=== PATIENT | female | born 1955 | race Caucasian/White ===

== ENCOUNTER 2022-02-28 06:00 | Outpatient (RCR) | payer MEDICARE, MEDICAID, SELFPAY | END 2022-03-03 23:59 | disposition home or self-care (01) | LOC: MPT 06:00 | PROVIDERS: Visit Provider Physician Assistant | DX: M25.511 Pain in right shoulder (principal) | CPT/HCPCS: 97161 ==

== ENCOUNTER 2022-03-04 06:00 | Outpatient (RCR) | payer MEDICARE, MEDICAID, SELFPAY | END 2022-04-03 23:59 | disposition home or self-care (01) | LOC: MPT 06:00 | PROVIDERS: Visit Provider Physician Assistant | DX: M25.511 Pain in right shoulder (principal) | CPT/HCPCS: 97110; 97140; 97530; G0283 ==

== ENCOUNTER 2022-04-04 06:00 | Outpatient (RCR) | payer MEDICARE, MEDICAID, SELFPAY | END 2022-05-01 23:59 | disposition home or self-care (01) | LOC: MPT 06:00 | PROVIDERS: Visit Provider Physician Assistant | DX: M25.511 Pain in right shoulder (principal) | CPT/HCPCS: 97110; G0283 ==

== ENCOUNTER 2023-08-08 16:48 | Emergency (ER) | payer MEDICARE, MEDICAID, SELFPAY ==
[2023-08-08 17:13] VITALS: BP 191/91; PULSE 78; RESP 16; TEMP 36.7; O2SAT 96
[2023-08-08 18:02] LABS: Basophils % 0.2 %; Eosinophils % 0.1 %; Hematocrit 45.2 % (36-47); Lymphocytes # 1.6 10^3/uL (0.8-4.8); Lymphocytes % 10.8 %; Mean Corpuscular HGB Conc 33.2 g/dL (30-55); Mean Corpuscular Hemoglobin 30.5 pg (27-33); Mean Corpuscular Volume 91.9 fl (85-98); Mean Platelet Volume 11.4 fL (7.4-10.4); Monocytes # 0.7 10^3/uL (0.2-0.9); Monocytes % 4.7 %; Neutrophils # 12.17 10^3/uL (1.8-7.7); Neutrophils % 83.5 %; Nucleated Red Blood Cells % 0 %; Platelet Count 255 10^3/cmm (157-399); Red Blood Count 4.92 10^6/uL (3.85-5.65); Red Cell Distribution Width 12.7 % (12.1-15.1); White Blood Count 14.57 10^3/uL (3.29-11.43)
[2023-08-08 18:21] LABS: Alanine Aminotransferase 48 U/L (0-33); Albumin Level 4.5 g/dL (3.5-5.2); Alkaline Phosphatase 114 U/L (35-105); Anion Gap 15.2 (5-19); Aspartate Amino Transferase 20 U/L (0-32); Blood Urea Nitrogen 18 mg/dL (8-23); Calcium 9.8 mg/dL (8.5-10.5); Carbon Dioxide 23 mmol/L (22-29); Chloride 108 mmol/L (98-107); Creatinine Clr Calc Pharmacy 57.4143; Globulin 2.6 g/dL (1.3-4.6); Glomerular Filtration Rate 62.5 mL/min (90-130); Glucose 193 mg/dL (65-115); Lipase 24 U/L (13-60); Osmolality Calculated 301 mOsm/kg (285-295); Potassium 4.2 mmol/L (3.5-5.1); Sodium 142 mmol/L (136-145); Total Bilirubin 0.3 mg/dL (0.15-1.2); Total Protein 7.1 g/dL (6.6-8.7)
--- NOTE | 2023-08-08 19:27 | CTR_ITS ---
PROCEDURE INFORMATION: Exam: CTA Chest With Contrast Exam date and time: 08/08/2023 7:44 PM Age: 68 years old Clinical indication: Abdominal pain; Localized; Right upper quadrant (ruq); Chest wall pain; Prior surgery; Surgery date: 6+ months; Surgery type: Tubal 40 years ago; Patient HX: Patient complains of ruq/rib pain. Denies injury and denies SOB TECHNIQUE: Imaging protocol: Computed tomographic angiography of the chest with contrast. Exam focused on the arteries. 3D rendering (Not supervised by radiologist): MIP and/or 3D reconstructed images were created by the technologist. Radiation optimization: All CT scans at this facility use at least one of these dose optimization techniques: automated exposure control; mA and/or kV adjustment per patient size (includes targeted exams where dose is matched to clinical indication); or iterative reconstruction. Contrast material: OMNI 350; Contrast volume: 100 ml; Contrast route: INTRAVENOUS (IV); COMPARISON: No relevant prior studies available. RADIATION DOSE METRICS: Total DLP (mGy-cm): 1287.79 FINDINGS: Pulmonary arteries: No evidence of pulmonary thromboembolism. Aorta: No evidence of aneurysmal dilatation or dissection of the thoracic aorta. Thyroid: Grossly unremarkable. Lungs: No focal consolidation. No evidence of pneumonia. Pleural spaces: No evidence of pleural effusion. No pneumothorax. Heart: No cardiomegaly. No pericardial effusion. Mediastinal space: No evidence of mediastinal mass, fluid collection or hematoma. Lymph nodes: No mediastinal or hilar adenopathy. Bones/joints: No evidence of acute fracture or aggressive osseous lesion. Soft tissues: No evidence of fluid collection or hematoma in the superficial soft tissues. PROCEDURE INFORMATION: Exam: CT Abdomen And Pelvis With Contrast Exam date and time: 08/08/2023 7:44 PM Age: 68 years old Clinical indication: Abdominal pain; Localized; Right upper quadrant (ruq); Chest wall pain; Prior surgery; Surgery date: 6+ months; Surgery type: Tubal 40 years ago; Patient HX: Patient complains of ruq/rib pain. Denies injury and denies SOB TECHNIQUE: Imaging protocol: Computed tomography of the abdomen and pelvis with contrast. Radiation optimization: All CT scans at this facility use at least one of these dose optimization techniques: automated exposure control; mA and/or kV adjustment per patient size (includes targeted exams where dose is matched to clinical indication); or iterative reconstruction. Contrast material: OMNI 350; Contrast volume: 100 ml; Contrast route: INTRAVENOUS (IV); COMPARISON: No relevant prior studies available. RADIATION DOSE METRICS: Total DLP (mGy-cm): 871.3 FINDINGS: Liver: Hepatomegaly and hepatic steatosis with right lobe measuring up to 21 cm. No evidence of focal hepatic lesion. Gallbladder and bile ducts: Unremarkable. No intra-hepatic or extra-hepatic biliary dilatation. Pancreas: Unremarkable. Spleen: Unremarkable. Adrenal glands: Unremarkable. Kidneys and ureters: No renal parenchymal abnormality. No hydronephrosis or ureteral stone. Stomach and bowel: Few scattered colonic diverticula without evidence of acute diverticulitis. No evidence of bowel obstruction or perienteric inflammatory changes. Appendix: Normal appendix. Intraperitoneal space: No evidence of free air or fluid collection. Vasculature: Moderate aortobiiliac atherosclerosis without aneurysmal dilatation or dissection. The celiac trunk, SMA and JUAN are grossly patent. No evidence of IVC thrombus. The portal vein, SMV and splenic veins are grossly patent. Lymph nodes: No adenopathy. Urinary bladder: Grossly unremarkable. Reproductive: Grossly unremarkable. Bones/joints: No evidence of acute fracture or aggressive osseous lesion. Soft tissues: No evidence of fluid collection or hematoma in the superficial soft tissues. CT/CT angio chest w abd pel w con IMPRESSION: 1. No evidence of PE or acute aortic abnormality. IMPRESSION: 1. No evidence of acute abnormality in the abdomen or pelvis. 2. Hepatomegaly and hepatic steatosis. Consider correlation with clinical and laboratory findings for steatohepatitis.
--- NOTE | 2023-08-08 19:31 | ED_ITS ---
HPI - Abdominal Pain 2 General: Chief Complaint: Abdominal Pain Stated Complaint: right side stomach pain Time Seen by Provider: 08/08/23 19:23 Source: patient Mode of arrival: ambulatory Limitations: no limitations History of Present Illness: 68-year-old female states she has been h aving right-sided chest and abdominal pain over the last 4 to 5 days states she gets pain like this time but usually does not last this long. States pain is very tender to touch right under her right breast and hurts worse with deep inspirations as well she denies any cough denies any fevers. Denies any vomiting or diarrhea. Associated Symptoms: Denies chills, diarrhea, fever(s), nausea and vomiting Review of Systems 2 Const: Denies: fever(s), chills, body aches or change in appetite ENMT: Denies: throat pain or dental pain Card: Denies: chest pain Resp: Denies: dyspnea GI: Denies: abdominal pain, nausea, vomiting or diarrhea Musc: Denies: neck pain or back pain Skin/Breast: Denies: rash Neuro: Denies: headache(s) PFSH ED 2 PFSH: Family History Father Diabetes Myocardial infarct Mother Brain tumor Other Stroke Social History Smoking and tobacco/nicotine status: former use of tobacco/nicotine Quit status (tobacco/nicotine): not considering quitting Alcohol intake: current Alcohol intake frequency: holidays/special occasions only Substance/Drug Use: never Physical Exam 2 Const: COMMON NORMALS: no acute distress, patient oriented x3 and healthy appearing HENMT: COMMON NORMALS: normocephalic and atraumatic HEAD & SCALP: n ormocephalic and atraumatic Neck/C-Spine: COMMON NORMALS: full ROM and supple Chest: COMMONS NORMALS: normal inspection of the chest OTHER: point tender of her chest Resp: COMMON NORMALS: normal respiratory effort Cardio: COMMON NORMALS: regular rate, regular rhythm and No murmurs present (Cardio) RATE: regular rate RHYTHM: regular rhythm GI: COMMON NORMALS: Normal to inspection, nondistended, normoactive bowel sounds present, Soft to palpation and no masses PALPATION: Yes Soft to palpation OTHER: right sided tenderness Extremity: COMMON NORMALS: normal to inspection and full ROM Neuro: COMMON NORMALS: patient oriented x3, moves all extremities and no focal motor deficits Psych: COMMON NORMALS: mental status grossly normal, Normal thought process present and cooperative THOUGHT PROCESS: Normal thought process present Skin: COMMON NORMALS: no rashes or lesions noted and no wounds GENERAL SKIN EXAM: no rashes or lesions noted Course 2 Vital Signs: Vital signs: Vital Signs Temperature 98.0 F 08/08/23 17:13 Pulse Rate 59 L 08/08/23 20:59 Respiratory Rate 16 08/08/23 20:59 Blood Pressure 136/90 08/08/23 20:59 Pulse Oximetry 91 08/08/23 20:59 Oxygen Delivery Me thod Room Air 08/08/23 20:59 MDM - Abdominal Pain Medical Decision Making Patient presents here with abdominal chest pain on exam most likely chest wall pain she is very point tender on the right side of her chest wall imaging EKG is normal no signs of acute abdomen or ACS she feels improved here we will prescribe her pain meds she is follow-up with PCP and return if worsening. Medical Records I reviewed the patient's medical records. Lab Data I reviewed the patient's lab results. 08/08/23 17:53 08/08/23 17:53 Labs/Radiology: Radiology Impressions Chest/Abdomen/Pelvis CT 08/08/23 19:27 IMPRESSION: 1. No evidence of PE or acute aortic abnormality. IMPRESSION: 1. No evidence of acute abnormality in the abdomen or pelvis. 2. Hepatomegaly and hepatic steatosis. Consider correlation with clinical and laboratory findings for steatohepatitis. Laboratory Results WBC 14.57 10^3/uL (3.29-11.43) H 08/08/23 17:53 RBC 4.92 10^6/uL (3.85-5.65) 08/08/23 17:53 Hgb 15.00 g/dL (11.27-16.99) 08/08/23 17:53 Hct 45.2 % (36-47) 08/08/23 17:53 MCV 91.9 fl (85-98) 08/08/23 17:53 MCH 30.5 pg (27-33) 08/08/23 17:53 MCHC 33.2 g/dL (30-55) 08/08/23 17:53 RDW 12.7 % (12.1-15.1) 08/08/23 17:53 Plt Count 255 10^3/cmm (157-399) 08/08/23 17:53 MPV 11.4 fL (7.4-10.4) H 08/08/23 17:53 Neut % (Auto) 83.5 % 08/08/23 17:53 Lymph % (Auto) 10.8 % 08/08/23 17:53 [place] % (Auto) 4.7 % 08/08/23 17:53 Eos % (Auto) 0.1 % 08/08/23 17:53 Baso % (Auto) 0.2 % 08/08/23 17:53 Neut # (Auto) 12.17 10^3/uL (1.8-7.7) H 08/08/23 17:53 Lymph # (Auto) 1.6 10^3/uL (0.8-4.8) 08/08/23 17:53 [place] # (Auto) 0.7 10^3/uL (0.2-0.9) 08/08/23 17:53 Eos # (Auto) 0.0 10^3/uL (0.0-0.8) 08/08/23 17:53 Baso # (Auto) 0.0 10^3/uL (0.0-0.1) 08/08/23 17:53 Nucleated RBC % (auto) 0 % 08/08/23 17:53 Nucleated RBCs # 0.0 /100WBC 08/08/23 17:53 Sodium 142 mmol/L (136-145) 08/08/23 17:53 Potassium 4.2 mmol/L (3.5-5.1) 08/08/23 17:53 Chloride 108 mmol/L (98-107) H 08/08/23 17:53 Carbon Dioxide 23 mmol/L (22-29) 08/08/23 17:53 Anion Gap 15.2 (5-19) 08/08/23 17:53 BUN 18 mg/dL (8-23) 08/08/23 17:53 Creatinine 0.9 mg/dL (0.5-0.9) 08/08/23 17:53 GFR Calculation 62.5 mL/min (90-130) L 08/08/23 17:53 Glucose 193 mg/dL (65-115) H 08/08/23 17:53 Calculated Osmolality 301 mOsm/kg (285-295) H 08/08/23 17:53 Calcium 9.8 mg/dL (8.5-10.5) 08/08/23 17:53 Total Bilirubin 0.3 mg/dL (0.15-1.2) 08/08/23 17:53 AST 20 U/L (0-32) 08/08/23 17:53 ALT 48 U/L (0-33) H 08/08/23 17:53 Alkaline Phosphatase 114 U/L (35-105) H 08/08/23 17:53 Total Protein 7.1 g/dL (6.6-8.7) 08/08/23 17:53 Albumin 4.5 g/dL (3.5-5.2) 08/08/23 17:53 Globulin 2.6 g/dL (1.3-4.6) 08/08/23 17:53 Lipase 24 U/L (13-60) 08/08/23 17:53 Urine Color Dark yellow (Yellow) 08/08/23 19:30 Urine Appearance Slightly cloudy (CLEAR) 08/08/23 19:30 Urine pH 5 (5-7) 08/08/23 19:30 Ur Specific [place] 1.025 (1.005-1.030) 08/08/23 19:30 Urine Protein Neg (Negative) 08/08/23 19:30 Urine Glucose (UA) Norm (Normal) 08/08/23 19:30 Urine Ketones 1+ (Negative) H 08/08/23 19:30 Urine Blood 2+ (Negative) H 08/08/23 19:30 Urine Nitrate Negative (Negative) 08/08/23 19:30 Urine Bilirubin 1+ (Negative) H 08/08/23 19:30 Urine Urobilinogen 1 mg/dL (Negative) H 08/08/23 19:30 Ur Leukocyte Esterase Negative (Negative) 08/08/23 19:30 Urine RBC 5-10 /hpf (0-2) H 08/08/23 19:30 Urine WBC None /hpf (0-5) 08/08/23 19:30 Ur Squamous Epith Cells 0-4 /hpf (0-5) H 08/08/23 19:30 Calcium Oxalate Crystal Too numerous to cnt /hpf H 08/08/23 19:30 Amorphous Sediment Not Reportable 08/08/23 19:30 Urine Bacteria Trace /hpf (NONE) 08/08/23 19:30 Urine Mucus Trace /hpf 08/08/23 19:30 All radiology interpretation(s) finalized by discharge Discharge Plan Discharge Patient Disposition: Home Clinical Impression: Chest wall pain Condition: Stable Prescriptions: New hydrocodone-acetaminophen 5-325 mg tablet 1 tab PO Q6H PRN (Reason: pain) Qty: 14 0RF Naprosyn 500 mg tablet 500 mg PO BID PRN (Reason: pain) Qty: 20 0RF No Action gabapentin 300 mg capsule ? mg PO BID lisinopril 20 mg tablet 20 mg PO DAILY prednisone 20 mg tablet 40 mg PO daily Qty: 10 0RF Discharge Orders: Discharge ED (Routine); Ordered 08/08/23 Ordered By: Anatoliy Montiel Discharge Diet: Advance as tolerated Discharge Activity: Resume usual activity Patient Instructions: Chest Wall Pain (ED) Coding Level of Care Code ED Finance Director for Chilango Perez
[2023-08-08 19:50] LABS: Add Urine Microscopic? YES; Bilirubin Urine 1+ (Negative); Blood Urine 2+ (Negative); Glucose Urine UA Norm (Normal); Ketones Urine 1+ (Negative); Leukocyte Esterase Urine Negative (Negative); Nitrate Urine Negative (Negative); Protein Urine Neg (Negative); Specific Gravity, Urine 1.025 (1.005-1.030); Urine Appearance Slightly Cloudy (CLEAR); Urine Color Dark Yellow (Yellow); Urobilinogen Urine 1 mg/dL (Negative); pH Urine 5 (5-7)
[2023-08-08] MEDS: iohexol 350 mg/mL 500 mL Btl (per mL) IV (19:50)
[2023-08-08 19:56] LABS: Bacteria Urine TRACE /hpf; Calcium Oxalate Crystals Urine TOO NUMEROUS TO CNT /hpf; Mucus Urine TRACE /hpf; Squamous Epithelial Cell Urine 0-4 /hpf (0-5)
[2023-08-08 19:57] LABS: Add Urine Culture? No
[2023-08-08] MEDS: ondansetron 2 mg/ML SDV 2 mL 4 MG IVP (20:03)
[2023-08-08] MEDS: morphine 4 mg/mL SDV 1 mL IVP (20:03)
[2023-08-08 20:59] VITALS: BP 136/90; PULSE 59; RESP 16; O2SAT 91
[2023-08-08 21:25] VITALS: BP 160/83; PULSE 61; RESP 16; TEMP 36.7; O2SAT 94
== END 2023-08-08 21:26 | disposition home or self-care (01) ==
PROVIDERS: Emergency Provider Emergency Medicine
DX: R07.89 Other chest pain (principal); Z87.891 Personal history of nicotine dependence
CPT/HCPCS: 36415; 71275; 74177; 80053; 81001; 83690; 85025; 96374; 96375; 99285; J2270; J2405; Q9967